=== PATIENT | male | born 1960 | race Caucasian/White ===

== ENCOUNTER 2016-11-26 18:28 | Emergency (ER) | payer OTHER | END 2016-11-26 22:37 | disposition home or self-care (01) | LOC: ER 18:28 | DX: R51 Headache (principal); G89.29 Other chronic pain; M54.2 Cervicalgia; F17.220 Nicotine dependence, chewing tobacco, uncomplicated; Z88.0 Allergy status to penicillin; Z79.899 Other long term (current) drug therapy | CPT/HCPCS: 96372; 99282-25 ==

== ENCOUNTER 2017-02-13 23:02 | Emergency (ER) | payer OTHER | END 2017-02-14 01:42 | disposition home or self-care (01) | LOC: ER 23:02 | DX: G44.229 Chronic tension-type headache, not intractable (principal); Z88.0 Allergy status to penicillin; Z79.899 Other long term (current) drug therapy | CPT/HCPCS: 96374; 96375; 99070; 99283-25; J2765; J7040 ==